=== PATIENT | female | born 1985 | race Caucasian/White ===

== ENCOUNTER 2016-10-29 20:28 | Emergency (ER) | payer OTHER ==
[~2016-10-29] VITALS: Ht 167.6 cm; Wt 141.0 kg
[~2016-10-29 20:28] MED LIST: METF500T4 PO
[2016-10-29] MEDS ORDERED: IPRATROPIUM BROMIDE 0.5 MG/2.5 ML NEB SOLUTION NEB ONE (20:45)
[2016-10-29] MEDS ORDERED: ALBUTEROL SULFATE 5 MG/ML 20 ML NEB SOLN [BULK] NEB ONE (20:45)
[2016-10-29 20:47] LABS: GLUCOSE COMMENT 1 Doctor Notified; GLUCOSE,POINT OF CARE 93 MG/DL (70-110)
[2016-10-29] MEDS ORDERED: 0.9% SODIUM CHLORIDE 5 ML NEB SOLUTION NEB ONE (20:56)
[2016-10-29] MEDS ORDERED: PredniSONE 20 MG TABLET PO ONE (22:30)
[2016-10-29 23:10] VITALS: BP 125/79
== END 2016-10-29 23:12 | disposition home or self-care (01) ==
LOC: EMS 20:30
DX: J45.909 Unspecified asthma, uncomplicated (principal); I10 Essential (primary) hypertension; E11.9 Type 2 diabetes mellitus without complications
CPT/HCPCS: 71010; 82962; 94644; 99285; J7512; J7611

== ENCOUNTER 2017-07-04 06:26 | Emergency (ER) | payer OTHER ==
[~2017-07-04] VITALS: Ht 167.6 cm; Wt 132.7 kg
[2017-07-04] MEDS ORDERED: SODIUM CHLORIDE 0.9% 1,000 ML IV ONE (06:38)
[2017-07-04 06:43] LABS: GLUCOSE,POINT OF CARE 117 MG/DL (70-110)
[2017-07-04] MEDS ORDERED: ONDANSETRON HCL 4 MG/2 ML VIAL IVP ONE (06:45)
[2017-07-04 07:05] LABS: EOSINOPHILS % (AUTO) 0.9 % (1.0-6.0); HEMATOCRIT 39.3 % (36-46); HEMOGLOBIN 13.6 g/dL (12.0-16.0); LYMPHOCYTES # (AUTO) 0.6 K/uL (1.0-4.8); LYMPHOCYTES % (AUTO) 5.4 % (22.0-44.0); MEAN CORPUSCULAR HEMOGLOBIN 28.8 pg (26.0-34.0); MEAN CORPUSCULAR HGB CONC 34.6 G/dL (31.0-37.0); MEAN CORPUSCULAR VOLUME 83 fL (80-100); MONOCYTES # (AUTO) 0.4 K/uL (0.1-1.0); MONOCYTES % (AUTO) 3.8 % (2.0-9.0); NEUTROPHILS # (AUTO) 9.5 K/uL (1.8-7.7); PLATELET COUNT (AUTO) 239 K/uL (150-450); RED BLOOD CELL COUNT(AUTO) 4.72 MIL/uL (4.00-5.20); RED CELL DISTRIBUTION WIDTH 13.5 % (11.5-14.5); WHITE BLOOD COUNT (AUTO) 10.6 K/uL (4.5-11.0)
[2017-07-04 07:11] LABS: APPEARANCE,URINE CLEAR (CLEAR); GLUCOSE, URINE (UA) NEGATIVE (NEGATIVE); KETONES,URINE 15 mg/dL (NEGATIVE); LEUKOCYTE ESTERASE ,URINE NEGATIVE (NEGATIVE); PH,URINE 5.5 (5.0-8.0); PROTEIN,URINE NEGATIVE (NEGATIVE)
[2017-07-04 07:13] LABS: NEUTROPHILS % (AUTO) 89.9 % (40.0-70.0)
[2017-07-04 07:14] LABS: ANION GAP 9 mmol/L (8-16); CALCIUM, TOTAL 8.8 mg/dL (8.8-10.5); CARBON DIOXIDE 25 mmol/L (22-29); CHLORIDE 101 mmol/L (98-107); CREATININE 0.58 mg/dL (0.60-1.30); GLOMERULAR FILTR. RATE CALC > 60 mL/min (>60); POTASSIUM 3.8 mmol/L (3.5-5.1); SODIUM SERUM 135 mmol/L (136-145); UREA NITROGEN, BLOOD 11 mg/dL (7-18)
[2017-07-04 07:18] LABS: ADD UA MICROSCOPIC YES; OCCULT BLOOD,URINE SMALL (NEGATIVE); SQUAMOUS EPITHELIAL CELL,UR Moderate /LPF (None Seen); WBC,URINE None Seen /HPF (0-5)
[2017-07-04 07:20] LABS: ALANINE AMINOTRANSFERASE 24 U/L (12-78); ALBUMIN 3.7 g/dL (3.4-5.0); ASPARTATE AMINOTRANSFERASE 15 U/L (15-37); TOTAL PROTEIN, SERUM 8.1 g/dL (6.4-8.2)
[2017-07-04 08:15] LABS: INFLUENZA TYPE B NEGATIVE FOR TYPE B (NEGATIVE)
[2017-07-04 09:30] VITALS: BP 120/70
== END 2017-07-04 09:31 | disposition home or self-care (01) ==
LOC: EMS 06:27
DX: J11.1 Influenza due to unidentified influenza virus with other respiratory manifestations (principal); R10.10 Upper abdominal pain, unspecified; E11.9 Type 2 diabetes mellitus without complications; I10 Essential (primary) hypertension; J45.909 Unspecified asthma, uncomplicated
CPT/HCPCS: 36415; 80053; 81001; 82962; 83690; 84703; 85025; 87804; 96361; 96374; 99285; J2405; J7030; 99284

== ENCOUNTER 2017-07-08 16:35 | Emergency (ER) | payer OTHER ==
[~2017-07-08] VITALS: Ht 167.6 cm; Wt 132.7 kg
[2017-07-08 16:53] LABS: GLUCOSE,POINT OF CARE 107 MG/DL (70-110)
[2017-07-08] MEDS ORDERED: ALBUTEROL SULFATE 5 MG/ML 20 ML NEB SOLN [BULK] NEB ONE (17:15)
[2017-07-08] MEDS ORDERED: PredniSONE 20 MG TABLET PO ONE (17:30)
[2017-07-08 19:23] VITALS: BP 122/69
== END 2017-07-08 19:41 | disposition home or self-care (01) ==
LOC: EMS 16:37
DX: J45.901 Unspecified asthma with (acute) exacerbation (principal); J98.8 Other specified respiratory disorders; E11.9 Type 2 diabetes mellitus without complications; I10 Essential (primary) hypertension; Z91.013 Allergy to seafood
CPT/HCPCS: 71020; 82962; 94640; 99284; J7512; J7611

== ENCOUNTER 2018-10-03 22:35 | Inpatient (IN) | payer OTHER ==
[~2018-10-03] VITALS: Ht 167.6 cm; Wt 128.6 kg
[2018-10-03 22:49] LABS: GLUCOSE,POINT OF CARE 109 MG/DL (70-110)
[2018-10-03 23:49] LABS: BASOPHILS % (AUTO) 0.4 % (0.0-2.0); EOSINOPHILS % (AUTO) 1.5 % (1.0-6.0); HEMATOCRIT 36.9 % (36-46); HEMOGLOBIN 12.8 g/dL (12.0-16.0); LYMPHOCYTES # (AUTO) 2.1 K/uL (1.0-4.8); LYMPHOCYTES % (AUTO) 22.8 % (22.0-44.0); MEAN CORPUSCULAR HEMOGLOBIN 29.4 pg (26.0-34.0); MEAN CORPUSCULAR HGB CONC 34.8 G/dL (31.0-37.0); MEAN CORPUSCULAR VOLUME 85 fL (80-100); MONOCYTES # (AUTO) 0.6 K/uL (0.1-1.0); MONOCYTES % (AUTO) 6.6 % (2.0-9.0); NEUTROPHILS # (AUTO) 6.5 K/uL (1.8-7.7); NEUTROPHILS % (AUTO) 68.7 % (40.0-70.0); PLATELET COUNT (AUTO) 205 K/uL (150-450); RED BLOOD CELL COUNT(AUTO) 4.36 MIL/uL (4.00-5.20); RED CELL DISTRIBUTION WIDTH 13.5 % (11.5-14.5)
[2018-10-04 00:01] LABS: INR 1.1 (0.9-1.1); PROTHROMBIN TIME 11.2 SEC (9.4-11.6)
[2018-10-04 00:11] LABS: ANION GAP 9 mmol/L (8-16); CALCIUM, TOTAL 9.1 mg/dL (8.8-10.5); CARBON DIOXIDE 28 mmol/L (22-29); CHLORIDE 104 mmol/L (98-107); CREATININE 0.53 mg/dL (0.60-1.30); GLOMERULAR FILTR. RATE CALC > 60 mL/min (>60); GLUCOSE,RANDOM 104 mg/dL (70-110); POTASSIUM 3.3 mmol/L (3.5-5.1); SODIUM SERUM 141 mmol/L (136-145); UREA NITROGEN, BLOOD 14 mg/dL (7-18)
[2018-10-04 00:12] LABS: B-TYPE NATRIURETIC PEPTIDE 29 pg/mL (0-100)
[2018-10-04] MEDS ORDERED: SODIUM CHLORIDE 0.9% 100 ML ONE (00:24)
[2018-10-04] MEDS ORDERED: IOVERSOL 350 MG/ML 100 ML VIAL ONE (00:24)
[2018-10-04 00:36] LABS: ALANINE AMINOTRANSFERASE 25 U/L (12-78); ALBUMIN 3.8 g/dL (3.4-5.0); ALKALINE PHOSPHATASE 84 U/L (46-116); ASPARTATE AMINOTRANSFERASE 18 U/L (15-37); BILIRUBIN,TOTAL 0.7 mg/dL (0.1-1.0); CREATINE KINASE, TOTAL ONLY 119 U/L (26-192); HCG,QUANTITATIVE < 1 mIU/mL (0-6); TOTAL PROTEIN, SERUM 7.4 g/dL (6.4-8.2)
[2018-10-04] MEDS ORDERED: MAGNESIUM HYDROXIDE SUSPENSION 30 ML UDCUP PO PRN (05:00)
[2018-10-04] MEDS ORDERED: ACETAMINOPHEN 325 MG TABLET PO PRN (05:00)
[2018-10-04] MEDS ORDERED: BISACODYL 10 MG RECTAL RECTAL SUPPOSITORY PR PRN (05:00)
[2018-10-04] MEDS ORDERED: ZOLPIDEM TARTRATE 5 MG TABLET PO PRN (05:00)
[2018-10-04] MEDS ORDERED: MORPHINE SULFATE 2 MG/ML SYRINGE IVP PRN (05:00)
[2018-10-04] MEDS ORDERED: ONDANSETRON HCL 4 MG/2 ML VIAL IVP PRN (05:00)
[2018-10-04] MEDS ORDERED: ALBUTEROL SULFATE 2.5 MG/0.5 ML NEB SOLUTION NEB PRN (05:00)
[2018-10-04] MEDS ORDERED: HYDROCODONE/ACETAMINOPHEN 5-325 MG TABLET PO PRN (05:00)
[2018-10-04 07:38] LABS: GLUCOMETER DEV NAME(LOC) AHU.; GLUCOSE,POINT OF CARE 75 MG/DL (70-110)
[2018-10-04] MEDS ORDERED: PENTETATE DTPA TC99M/MCL ISOTOPE 1 EA INJ INJ ONE (08:00)
[2018-10-04] MEDS: DOCUSATE SODIUM 100 MG CAPSULE PO SCH ×2 (08:52→21:40)
[2018-10-04] MEDS: PANTOPRAZOLE SODIUM 40 MG DR TABLET PO SCH (08:52)
[2018-10-04] MEDS: ASPIRIN 81 MG CHEWABLE TABLET PO SCH (08:53)
[2018-10-04] MEDS: HEPARIN SODIUM,PORCINE 5,000 UNITS/ML VIAL SQ SCH ×3 (08:53→23:29)
[2018-10-04] MEDS ORDERED: MAA ALBUMIN AGGREGATED TC99M/UD<10MCL ISOTOPE 1 EA INJ INJ ONE (09:00)
[2018-10-04 17:49] LABS: GLUCOMETER DEV NAME(LOC) AHU.; GLUCOSE,POINT OF CARE 74 MG/DL (70-110)
[2018-10-04 21:19] VITALS: BP 132/71
[2018-10-05 00:33] VITALS: BP 128/70
[2018-10-05 03:56] VITALS: BP 131/65
[2018-10-05 07:04] LABS: ANION GAP 10 mmol/L (8-16); CALCIUM, TOTAL 8.5 mg/dL (8.8-10.5); CARBON DIOXIDE 25 mmol/L (22-29); CHLORIDE 106 mmol/L (98-107); CHOL/HDL RATIO 2.8 (3.9-5.7); CHOLESTEROL 98 mg/dL (131-200); CREATININE 0.52 mg/dL (0.60-1.30); GLOMERULAR FILTR. RATE CALC > 60 mL/min (>60); GLUCOSE,RANDOM 87 mg/dL (70-110); HDL CHOLESTEROL 35 mg/dL (40-60); LDL CHOL (CALC.) 54 mg/dL (0-130); POTASSIUM 3.7 mmol/L (3.5-5.1); SODIUM SERUM 141 mmol/L (136-145); TRIGLYCERIDES 47 mg/dL (15-150); UREA NITROGEN, BLOOD 11 mg/dL (7-18)
[2018-10-05 07:27] LABS: BASOPHILS % (AUTO) 0.3 % (0.0-2.0); EOSINOPHILS % (AUTO) 3.1 % (1.0-6.0); HEMATOCRIT 36.4 % (36-46); HEMOGLOBIN 12.5 g/dL (12.0-16.0); LYMPHOCYTES # (AUTO) 2.7 K/uL (1.0-4.8); LYMPHOCYTES % (AUTO) 33.5 % (22.0-44.0); MEAN CORPUSCULAR HEMOGLOBIN 28.7 pg (26.0-34.0); MEAN CORPUSCULAR HGB CONC 34.3 G/dL (31.0-37.0); MEAN CORPUSCULAR VOLUME 84 fL (80-100); MONOCYTES # (AUTO) 0.5 K/uL (0.1-1.0); MONOCYTES % (AUTO) 6.4 % (2.0-9.0); NEUTROPHILS # (AUTO) 4.6 K/uL (1.8-7.7); NEUTROPHILS % (AUTO) 56.7 % (40.0-70.0); RED BLOOD CELL COUNT(AUTO) 4.35 MIL/uL (4.00-5.20); RED CELL DISTRIBUTION WIDTH 13.5 % (11.5-14.5)
[2018-10-05 07:56] VITALS: BP 117/77
[2018-10-05 08:28] LABS: PLATELET COUNT (AUTO) 182 K/uL (150-450)
[2018-10-05] MEDS: PANTOPRAZOLE SODIUM 40 MG DR TABLET PO SCH (09:07)
[2018-10-05] MEDS: DOCUSATE SODIUM 100 MG CAPSULE PO SCH (09:07)
[2018-10-05] MEDS: HEPARIN SODIUM,PORCINE 5,000 UNITS/ML VIAL SQ SCH (09:07)
[2018-10-05] MEDS: ASPIRIN 81 MG CHEWABLE TABLET PO SCH (09:07)
[2018-10-05 11:20] VITALS: BP 132/71
[2018-10-05] MEDS ORDERED: IBUP-1506 PO (13:45)
== END 2018-10-05 14:10 | disposition home or self-care (01) | DRG 203 ==
LOC: EMS 22:37 → 5N 10-04 19:19
PROVIDERS: ADMIT Internal Medicine; ATTEND Internal Medicine
PROC: 4A02XM4 Measurement of Cardiac Total Activity, External Approach (ICD-10-PCS; principal; 2018-10-04)
PROC: 3E033HZ Introduction of Radioactive Substance into Peripheral Vein, Percutaneous Approach (ICD-10-PCS; 2018-10-04)
DX: M94.0 Chondrocostal junction syndrome [Tietze] (principal); E03.9 Hypothyroidism, unspecified; E11.9 Type 2 diabetes mellitus without complications; E05.90 Thyrotoxicosis, unspecified without thyrotoxic crisis or storm; I10 Essential (primary) hypertension; J45.909 Unspecified asthma, uncomplicated; E78.5 Hyperlipidemia, unspecified; Z91.013 Allergy to seafood; Z79.899 Other long term (current) drug therapy
CPT/HCPCS: 71275; 78582; 93005; 93306; 93970; A9539; A9540; G0378; J1644; J7050

== ENCOUNTER 2019-03-12 11:19 | Emergency (ER) | payer OTHER ==
[~2019-03-12] VITALS: Ht 160 cm; Wt 105.9 kg
[~2019-03-12 11:19] MED LIST changes: +IBUP-1506 PO; -METF500T4 PO
[2019-03-12 12:53] VITALS: BP 111/69
[2019-03-12 12:59] LABS: BASOPHILS % (AUTO) 0.2 % (0.0-2.0); EOSINOPHILS % (AUTO) 2.3 % (1.0-6.0); HEMATOCRIT 41.4 % (36-46); HEMOGLOBIN 14.1 g/dL (12.0-16.0); INR 1.2 (0.9-1.1); LYMPHOCYTES # (AUTO) 2.3 K/uL (1.0-4.8); LYMPHOCYTES % (AUTO) 21.7 % (22.0-44.0); MEAN CORPUSCULAR HEMOGLOBIN 30.9 pg (26.0-34.0); MEAN CORPUSCULAR HGB CONC 34.1 G/dL (31.0-37.0); MEAN CORPUSCULAR VOLUME 91 fL (80-100); MONOCYTES # (AUTO) 0.9 K/uL (0.1-1.0); MONOCYTES % (AUTO) 8.4 % (2.0-9.0); NEUTROPHILS % (AUTO) 67.4 % (40.0-70.0); RED BLOOD CELL COUNT(AUTO) 4.57 MIL/uL (4.00-5.20); RED CELL DISTRIBUTION WIDTH 13.7 % (11.5-14.5)
[2019-03-12 13:05] LABS: ANION GAP 14 mmol/L (8-16); CALCIUM, TOTAL 9.1 mg/dL (8.8-10.5); CARBON DIOXIDE 22 mmol/L (22-29); CHLORIDE 103 mmol/L (98-107); CREATININE 0.58 mg/dL (0.60-1.30); GLOMERULAR FILTR. RATE CALC > 60 mL/min (>60); GLUCOSE,RANDOM 89 mg/dL (70-110); POTASSIUM 3.7 mmol/L (3.5-5.1); SODIUM SERUM 139 mmol/L (136-145); UREA NITROGEN, BLOOD 19 mg/dL (7-18)
[2019-03-12 13:31] LABS: PLATELET COUNT (AUTO) 145 K/uL (150-450)
[2019-03-12 13:34] LABS: ALANINE AMINOTRANSFERASE 19 U/L (12-78); ALKALINE PHOSPHATASE 60 U/L (46-116); ASPARTATE AMINOTRANSFERASE 20 U/L (15-37); BILIRUBIN,TOTAL 1.3 mg/dL (0.1-1.0); HCG,QUANTITATIVE < 1 mIU/mL (0-6); TOTAL PROTEIN, SERUM 7.5 g/dL (6.4-8.2)
[2019-03-12 14:08] LABS: ERYTHROCYTE SEDIMENTATION RATE 21 MM/HR (0-20)
== END 2019-03-12 13:50 | disposition home or self-care (01) ==
LOC: EMS 11:22
DX: S80.11XA Contusion of right lower leg, initial encounter (principal); S80.12XA Contusion of left lower leg, initial encounter; D69.6 Thrombocytopenia, unspecified; J45.909 Unspecified asthma, uncomplicated; E11.9 Type 2 diabetes mellitus without complications; I10 Essential (primary) hypertension; E03.9 Hypothyroidism, unspecified; F17.210 Nicotine dependence, cigarettes, uncomplicated; F12.90 Cannabis use, unspecified, uncomplicated; X58.XXXA Exposure to other specified factors, initial encounter; Y93.89 Activity, other specified; Y92.89 Other specified places as the place of occurrence of the external cause; Y99.8 Other external cause status
CPT/HCPCS: 85651; 93005

== ENCOUNTER 2021-02-27 08:25 | Emergency (ER) | payer OTHER ==
[~2021-02-27] VITALS: Ht 167.6 cm; Wt 98.6 kg
[2021-02-27] MEDS ORDERED: PredniSONE 20 MG TABLET PO ONE (09:30)
[2021-02-27] MEDS ORDERED: IPRATROPIUM BROMIDE 0.5 MG/2.5 ML NEB SOLUTION NEB ONE (09:30)
[2021-02-27] MEDS ORDERED: ALBUTEROL SULFATE 5 MG/ML 20 ML NEB SOLN [BULK] NEB ONE (09:30)
[2021-02-27] MEDS ORDERED: 0.9% SODIUM CHLORIDE 5 ML NEB SOLUTION NEB ONE (09:46)
[2021-02-27 09:52] LABS: COVID AG,FIA SOURCE NASAL SWAB
[2021-02-27 12:45] VITALS: BP 109/75
== END 2021-02-27 12:58 | disposition home or self-care (01) ==
LOC: EMS 08:29
DX: U07.1 COVID-19 (principal); J45.901 Unspecified asthma with (acute) exacerbation; I10 Essential (primary) hypertension; E11.9 Type 2 diabetes mellitus without complications; E05.90 Thyrotoxicosis, unspecified without thyrotoxic crisis or storm; E03.9 Hypothyroidism, unspecified; Z91.018 Allergy to other foods
CPT/HCPCS: 87426; 94640; 99283; J7512

== ENCOUNTER 2022-05-14 11:27 | Emergency (ER) | payer OTHER ==
[~2022-05-14] VITALS: Ht 165.1 cm; Wt 84.1 kg
[2022-05-14] MEDS ORDERED: ALBU8HFA IH (11:31)
[2022-05-14] MEDS ORDERED: GABA-1216 PO (11:31)
[2022-05-14 11:44] LABS: COVID AG,FIA SOURCE NASAL SWAB
[2022-05-14 12:08] VITALS: BP 132/95
[2022-05-14 12:23] LABS: INFLUENZA TYPE B NEGATIVE FOR TYPE B (NEGATIVE)
[2022-05-14 12:28] LABS: INFLUENZA TYPE A POSITIVE FOR TYPE A (NEGATIVE)
[2022-05-14] MEDS ORDERED: OSEL75 PO (12:35)
[2022-05-14] MEDS ORDERED: IPRATROPIUM BROMIDE 0.5 MG/2.5 ML NEB SOLUTION NEB ONE (12:45)
[2022-05-14] MEDS ORDERED: PredniSONE 20 MG TABLET PO ONE (12:45)
[2022-05-14] MEDS ORDERED: ALBUTEROL SULFATE 2.5 MG/0.5 ML NEB SOLUTION NEB ONE (12:45)
== END 2022-05-14 13:28 | disposition home or self-care (01) ==
LOC: EMS 11:38
DX: J10.1 Influenza due to other identified influenza virus with other respiratory manifestations (principal); J45.909 Unspecified asthma, uncomplicated; E11.9 Type 2 diabetes mellitus without complications; I10 Essential (primary) hypertension; E05.90 Thyrotoxicosis, unspecified without thyrotoxic crisis or storm; E03.9 Hypothyroidism, unspecified; F12.90 Cannabis use, unspecified, uncomplicated; Z98.890 Other specified postprocedural states; Z91.013 Allergy to seafood; Z20.822 Contact with and (suspected) exposure to COVID-19
CPT/HCPCS: 99283; 87426; 87804; 94640; J7512

== ENCOUNTER 2023-06-12 22:13 | Emergency (ER) | payer MEDICAID, OTHER ==
[~2023-06-12] VITALS: Ht 165.1 cm; Wt 121.0 kg
[~2023-06-12 22:13] MED LIST changes: +FLUO20CA36 PO; -IBUP-1506 PO; +MELA5TAB40 PO; +NALT50TA PO
[2023-06-12 22:28] VITALS: TEMP 98.7
[2023-06-12] MEDS ORDERED: MethylPREDNISolone SOD SUCC 125 MG/2 ML VIAL IVP ONE (23:00)
[2023-06-12] MEDS ORDERED: IPRATROPIUM BROMIDE 0.5 MG/2.5 ML NEB SOLUTION NEB ONE (23:00)
[2023-06-12] MEDS ORDERED: ALBUTEROL SULFATE 2.5 MG/0.5 ML NEB SOLUTION NEB ONE (23:00)
[2023-06-12] MEDS ORDERED: MethylPREDNISolone SOD SUCC 125 MG/2 ML VIAL IM ONE (23:00)
[2023-06-12 23:01] VITALS: PULSE 84; RESP 18; O2SAT 97
[2023-06-12 23:16] VITALS: PULSE 80; RESP 18; O2SAT 98
[2023-06-12 23:31] LABS: COVID AG,FIA SOURCE NASAL SWAB
[2023-06-12 23:40] LABS: BASOPHILS % (AUTO) 0.5 % (0.0-2.0); EOSINOPHILS % (AUTO) 9.5 % (1.0-6.0); HEMATOCRIT 39.3 % (36-46); HEMOGLOBIN 13.8 g/dL (12.0-16.0); LYMPHOCYTES # (AUTO) 1.8 K/uL (1.0-4.8); LYMPHOCYTES % (AUTO) 22.4 % (22.0-44.0); MEAN CORPUSCULAR HEMOGLOBIN 33.4 pg (26.0-34.0); MEAN CORPUSCULAR VOLUME 96 fL (80-100); MONOCYTES # (AUTO) 0.6 K/uL (0.1-1.0); MONOCYTES % (AUTO) 7.9 % (2.0-9.0); NEUTROPHILS # (AUTO) 4.8 K/uL (1.8-7.7); NEUTROPHILS % (AUTO) 59.7 % (40.0-70.0); PLATELET COUNT (AUTO) 188 K/uL (150-450); RED BLOOD CELL COUNT(AUTO) 4.12 MIL/uL (4.00-5.20); RED CELL DISTRIBUTION WIDTH 12.5 % (11.5-14.5)
[2023-06-12 23:44] LABS: ANION GAP 7 mmol/L (8-16); CALCIUM, TOTAL 8.6 mg/dL (8.8-10.5); CARBON DIOXIDE 28 mmol/L (22-29); CHLORIDE 104 mmol/L (98-107); CREATININE 0.97 mg/dL (0.60-1.30); GLOMERULAR FILTR. RATE CALC > 60 mL/min (>60); GLUCOSE,RANDOM 103 mg/dL (70-110); POTASSIUM 4.2 mmol/L (3.5-5.1); SODIUM SERUM 139 mmol/L (136-145); UREA NITROGEN, BLOOD 28 mg/dL (7-18)
[2023-06-12 23:45] LABS: INFLUENZA TYPE A NEGATIVE FOR TYPE A (NEGATIVE); INFLUENZA TYPE B NEGATIVE FOR TYPE B (NEGATIVE); SARS-COV2 (COVID) ANTIGEN,FIA Negative (Negative)
[2023-06-12 23:50] LABS: ALANINE AMINOTRANSFERASE 19 U/L (12-78); ALBUMIN 3.4 g/dL (3.4-5.0); ALKALINE PHOSPHATASE 74 U/L (46-116); ASPARTATE AMINOTRANSFERASE 16 U/L (15-37); BILIRUBIN,TOTAL 0.4 mg/dL (0.1-1.0); TOTAL PROTEIN, SERUM 7.3 g/dL (6.4-8.2)
[2023-06-13 01:26] VITALS: BP 128/76; PULSE 77; RESP 18
[2023-06-13] MEDS ORDERED: PRED-554 PO (01:52)
[2023-06-13] MEDS ORDERED: ALBU18HF12 IH (01:52)
== END 2023-06-13 02:03 | disposition home or self-care (01) ==
LOC: EMS 22:13
DX: J45.909 Unspecified asthma, uncomplicated (principal); E11.9 Type 2 diabetes mellitus without complications; I10 Essential (primary) hypertension; E03.9 Hypothyroidism, unspecified; F17.210 Nicotine dependence, cigarettes, uncomplicated; F12.90 Cannabis use, unspecified, uncomplicated; Z98.890 Other specified postprocedural states; Z20.822 Contact with and (suspected) exposure to COVID-19
CPT/HCPCS: 99291; 96374; 87426; 80053; 84703; 85025; 87804; 36415; 94640; 71045; J2930; J7613

== ENCOUNTER 2023-10-21 03:44 | Emergency (ER) | payer OTHER ==
[~2023-10-21] VITALS: Ht 167.6 cm; Wt 127.3 kg
[~2023-10-21 03:44] MED LIST changes: +ALBU18HF12 IH; +PRED-554 PO
[2023-10-21] MEDS ORDERED: ALBU18HF12 IH (03:59)
[2023-10-21 04:10] VITALS: PULSE 62; RESP 22; O2SAT 99
[2023-10-21] MEDS: ALBUTEROL SULFATE 2.5 MG/0.5 ML NEB SOLUTION NEB ONE (04:10)
[2023-10-21] MEDS: IPRATROPIUM BROMIDE 0.5 MG/2.5 ML NEB SOLUTION NEB ONE (04:10)
[2023-10-21] MEDS: DEXAMETHASONE SOD PHOS 4 MG/ML 5 ML VIAL IM ONE (04:23)
[2023-10-21 04:25] VITALS: PULSE 67; RESP 22; O2SAT 99
[2023-10-21 04:59] VITALS: BP 128/82; PULSE 80; RESP 18; TEMP 98.5
== END 2023-10-21 05:01 | disposition home or self-care (01) ==
LOC: EMS 03:46
DX: J45.901 Unspecified asthma with (acute) exacerbation (principal); F17.210 Nicotine dependence, cigarettes, uncomplicated
CPT/HCPCS: 99283; 94640; 96372; J1100

== ENCOUNTER 2023-10-29 17:11 | Emergency (ER) | payer OTHER ==
[~2023-10-29] VITALS: Ht 167.6 cm; Wt 127.0 kg
[2023-10-29 17:23] VITALS: TEMP 98
[2023-10-29 17:32] LABS: COVID AG,FIA SOURCE NASAL SWAB
[2023-10-29 17:55] LABS: SARS-COV2 (COVID) ANTIGEN,FIA Negative (Negative)
[2023-10-29 18:26] VITALS: PULSE 66; RESP 22; O2SAT 96
[2023-10-29] MEDS: EPINEPHrine 1:1,000 [1 MG/ML] VIAL SQ ONE (18:26)
[2023-10-29] MEDS: ALBUTEROL SULFATE 2.5 MG/0.5 ML NEB SOLUTION NEB ONE (18:26)
[2023-10-29] MEDS: IPRATROPIUM BROMIDE 0.5 MG/2.5 ML NEB SOLUTION NEB ONE ×2 (18:26→18:46)
[2023-10-29] MEDS: MethylPREDNISolone SOD SUCC 125 MG/2 ML VIAL IM ONE (18:26)
[2023-10-29 18:41] VITALS: PULSE 74; RESP 22; O2SAT 98
[2023-10-29 18:46] VITALS: PULSE 68; RESP 22; O2SAT 98
[2023-10-29] MEDS: ALBUTEROL SULFATE 2.5 MG/0.5 ML 5 ML NEB SOLUTION NEB ONE (18:46)
[2023-10-29 18:53] LABS: INFLUENZA TYPE A NEGATIVE FOR TYPE A (NEGATIVE); INFLUENZA TYPE B NEGATIVE FOR TYPE B (NEGATIVE)
[2023-10-29 19:02] VITALS: BP 140/91
[2023-10-29 19:56] VITALS: PULSE 88; RESP 20; O2SAT 98
[2023-10-29] MEDS ORDERED: ALBU18HF12 IH (20:07)
[2023-10-29] MEDS ORDERED: PRED-554 PO (20:07)
== END 2023-10-29 20:26 | disposition home or self-care (01) ==
LOC: EMS 17:11
DX: J45.901 Unspecified asthma with (acute) exacerbation (principal); F17.210 Nicotine dependence, cigarettes, uncomplicated; Z98.890 Other specified postprocedural states; Z20.822 Contact with and (suspected) exposure to COVID-19; Z91.013 Allergy to seafood
CPT/HCPCS: 99285; 71046; 87426; 87804; 94644; 96372; J0171; J2930; Q9967; 94640; J7613

== ENCOUNTER 2023-11-05 12:31 | Emergency (ER) | payer OTHER | END 2023-11-05 14:16 | disposition left against medical advice (07) | LOC: EMS 12:31 | DX: R07.9 Chest pain, unspecified (principal); R06.02 Shortness of breath; Z53.21 Procedure and treatment not carried out due to patient leaving prior to being seen by health care provider | CPT/HCPCS: 99281; Z7502 ==